=== PATIENT | male | born 1950 | race Caucasian/White ===

== ENCOUNTER 2016-09-06 19:21 | Emergency (ER) | payer MEDICARE, MEDICAID ==
[~2016-09-06] VITALS: Ht 185.4 cm; Wt 77.3 kg
[2016-09-06] MEDS ORDERED: LORazepam 2 MG/ML (ATIVAN) 1 ML VIAL IV ONE (19:40)
[2016-09-06 19:45] LABS: BASOPHILS % (AUTO) 1 % (0-2); EOSINOPHILS # (AUTO) 0.1 10^3uL; EOSINOPHILS % (AUTO) 1 % (0-4); LYMPHOCYTES # (AUTO) 1.2 X10^3; MEAN CORPUSCULAR HEMOGLOBIN 31.1 PG (26.0-34.0); MEAN CORPUSCULAR HGB CONC 33.3 g/dL (31.0-37.0); MEAN CORPUSCULAR VOLUME 93 FL (80-100); MEAN PLATELET VOLUME 9.2 FL (6.0-9.5); MONOCYTES # (AUTO) 0.9 X10^3; MONOCYTES % (AUTO) 13 % (3-11); NEUTROPHILS # (AUTO) 4.7 X10^3; NEUTROPHILS % (AUTO) 67 % (51-67); PLATELET COUNT 161 10^3uL (150-450)
--- NOTE | 2016-09-06 20:08 | NUR ---
PATIENT HAS BEEN VERY CALM AND NO YELLING OR HITTING AT STAFF SINCE ARRIVAL. KNOWS HE IS IN HOSPITAL.
[2016-09-06] MEDS ORDERED: SODIUM CHLORIDE FLUSH 3 ML SYR IV ONE (20:25)
[2016-09-06] MEDS ORDERED: SODIUM CHLORIDE FLUSH 10 ML SYR IV PRN (20:25)
--- NOTE | 2016-09-06 20:34 | NUR ---
PATIENT CONTINUES TO SLEEP
[2016-09-06 21:07] LABS: ANION GAP 9.1 MEQ/L (3-15)
[2016-09-06 21:10] LABS: ALBUMIN 3.9 g/dL (3.4-5.0); CALCULATED IONIZED CALCIUM 4.1 mg/dL (3.8-4.6); TOTAL PROTEIN 7.1 g/dL (6.4-8.5)
[2016-09-06] MEDS ORDERED: FUROSEMIDE 20 MG/2 ML (LASIX) VIAL IV ONE (21:35)
[2016-09-06] MEDS ORDERED: NS IV 500 ML 500 ML IV SCH (21:35)
[2016-09-06 22:32] LABS: BILIRUBIN,URINE Negative (Negative); CLARITY,URINE Clear; COLOR,URINE Yellow; GLUCOSE, URINE (UA) Negative (Negative); LEUKOCYTE ESTERASE ,URINE Negative (Negative)
[2016-09-06 23:07] VITALS: BP 101/60
== END 2016-09-06 23:08 | disposition home or self-care (01) ==
LOC: ED 19:23
DX: R45.1 Restlessness and agitation (principal)
CPT/HCPCS: 36415; 80053; 80164; 80178; 81003; 85025; 96374; 96375; 99283; J1940; J2060; J7040

== ENCOUNTER → 2016-09-06 | Outpatient (CLI) | payer MEDICARE, MEDICAID | LOC: EMS 17:20 | PROVIDERS: ATTEND Emergency Medicine | DX: F99 Mental disorder, not otherwise specified (principal) ==